=== PATIENT | female | born 1950 | race Caucasian/White ===

== ENCOUNTER 2023-11-09 23:57 | Emergency (ER) | payer MEDICARE ==
[~2023-11-09] VITALS: Ht 149.9 cm; Wt 37.6 kg
[2023-11-10] MEDS ORDERED: ONDANSETRON 4MG INJ IVP ONE (00:30)
[2023-11-10] MEDS ORDERED: MORPHINE 2 MG SYG IVP ONE (00:30)
[2023-11-10 01:07] VITALS: BP 132/52; PULSE 74; RESP 20; O2SAT 98
[2023-11-10] MEDS ORDERED: TRAM50TA4 PO (01:25)
[2023-11-10] MEDS ORDERED: IBUP-1493 PO (01:25)
== END 2023-11-10 01:47 | disposition home or self-care (01) ==
LOC: EDH 23:57
DX: S42.292A Other displaced fracture of upper end of left humerus, initial encounter for closed fracture (principal); W18.39XA Other fall on same level, initial encounter; Y93.89 Activity, other specified; Y92.89 Other specified places as the place of occurrence of the external cause; Y99.8 Other external cause status
CPT/HCPCS: 99284; 96374; 71045; 96375; 73100; 73070; 73090; 73130; 73060; 73030; J2270; J2405